=== PATIENT | female | born 1985 | race Caucasian/White ===

== ENCOUNTER → 2018-09-06 09:39 | Outpatient (CLI) | payer BC, SELFPAY ==
[2018-09-06 10:00] LABS: Absolute Lymphocyte Count 1.27 X10^3/ul (0.83-4.51); Absolute Neutrophil Count 5.7 X10^3/uL (2.0-7.7); Basophil# 0.02 X10^3/uL; Basophil% 0.3 % (0-1); Eosinophil# 0.02 X10^3/uL; Eosinophils% 0.3 % (0-5); Hematocrit 37.6 % (37-47); Hemoglobin 12.4 g/dl (12.0-15.0); Lymphocyte # 1.27 X10^3/ul (4.0); Lymphocyte % 16.8 % (19-41); Mean Corpuscular Hgb 30.2 pg (27.0-32.0); Mean Corpuscular Volume 91.7 fL (81-99); Mean Platelet Vol. 11.1 fl (6.2-12.0); Monocyte# 0.48 X10^3/uL; Monocyte% 6.4 % (0-10); Neutrophil # 5.74 X10^3/uL (2.7-7.7); Neutrophil % 75.9 % (47-70); POSITIVE COUNT NO; POSITIVE DIFFERENTIAL NO; POSITIVE MORPHOLOGY NO; Platelet Count 144 K/mm3 (150-450); RBC Distribution Width CV 12.4 % (11.6-14.6); RBC Distribution Width SD 41.7 fl (35.1-43.9); White Blood Count 7.6 K/mm3 (4.4-11.0)
[2018-09-06 11:33] LABS: HIV - WCH Non-Reactive (Nonreactive); Rubella IgG 210.8 IU/mL
[2018-09-09 11:47] LABS: HEPATITIS B SURFACE AG Negative (Negative)
[2018-09-13 02:00] LABS: Rapid Plasmin Reagin (RPR) NONREACTIVE (NONREACTIVE)
== END ==
PROVIDERS: Referring Provider Obstetrics & Gynecology; Visit Provider Obstetrics & Gynecology
DX: Z34.90 Encounter for supervision of normal pregnancy, unspecified, unspecified trimester (principal)
CPT/HCPCS: 36415; 85025; 86592; 86703; 86762; 86850; 87340

== ENCOUNTER → 2018-10-08 18:42 | Outpatient (CLI) | payer BC, SELFPAY ==
[2018-10-08 09:53] VITALS: BMI 25.0
--- OUTSIDE RECORDS SUMMARY | 2019-01-10 06:08 | XMS RPT_ITS ---
:1985 Author Organization OHIP Support Name Relationship Address Phone [facility] Unavailable [address] + [place] [address] KLINKSIEK, [place] Unavailable [id number] JOSEFA [phone] Unavailable [address] + [place] [address] KLINKSIEK, [place] Unavailable [address] JOSEFA [phone] Unavailable [address] + [place] [address] KLINKSIEK, DELMER Unavailable [id number] [phone] [place] [address] JORDAN FORD Unavailable Unavailable Unavailable [facility] Unavailable [address] + [place] [address] KLINKSIEK, [place] Unavailable [address] JOSEFA [phone] Unavailable [address] + [place] [address] KLINKSIEK, DELMER Unavailable [id number] [phone] [place], [place] [id number] [place] [address] + [place] [address] KLINKSIEK, DELMER Unavailable [address] JOSEFA [phone]available [address] + [place] [address] KLINKSIEK, DELMER Unavailable [phone] [phone] [facility] Unavailable [address] + [place] [address] KLINKSIEK, [place] Unavailable [phone] JOSEFA [address]KEON + [place] [address] [facility] Unavailable [address] + [place] [address] KLINKSIEK, [place] Unavailable [phone] JOSEFA [phone] [place] [address] Care Team Providers Name Role Phone SUSAN MONET Attending Unavailable MARCANTHONY, ISABELLE Micheal Referring Unavailable NO PRIMARY CARE, Primary Care Unavailable Pricila Melendez Attending Unavailable KEREN LO Primary Care Unavailable Al, Pricila Referring Unavailable Marcanthony, Isabelle Attending Unavailable Marcanthony, Isabelle Referring Unavailable KEREN LO Primary Care Unavailable Marcanthony, Isabelle Attending Unavailable DOCTOR, OUT OF TOWN Referring Unavailable DossiAnamaria fish D.C. Attending Unavailable DOCTOR, OUT OF TOWN Referring Unavailable DossiAnamaria fish D.C. Attending Unavailable DOCTOR, OUT OF TOWN Referring Unavailable Carlisle, Pricila Attending Unavailable DOCTOR, OUT OF TOWN Referring Unavailable Dossie, Anamaria Boyd Attending Unavailable DOCTOR, OUT OF TOWN Referring Unavailable Marcanthony, Isabelle Attending Unavailable Marcanthony, Isabelle Attending Unavailable Marcanthony, Isabelle Referring Unavailable KEREN LO Primary Care Unavailable PROBLEMS PROBLEMS DATE TYPE CONDITION / CODE ATTENDING STATUS SOURCE 10/29/2018 Unknown Z34.90 - Marcanthony, Active Mckenna [facility] normal , Repository unspecified, unspecified trimester / Z34.90(ICD-10) 10/29/2018 Unknown Z3A.21 - 21 weeks Marcanthony, Active Erik gestation of [facility] / Hospital Z3A.21(ICD-10) Repository 10/29/2018 Unknown Z98.891 - History Marcanthony, Active Erik of uterine scar [facility] from previous Hospital surgery / Repository Z98.891(ICD-10) 10/29/2018 Unknown Z34.80 - Marcanthony, Active Erik Encounter for [facility] other normal Repository , unspecified trimester / Z34.80(ICD-10) 10/30/2018 Unknown M99.03 - Dossie, Anamaria Active Mckenna Segmental and [facility] dysfunction of Repository lumbar region / M99.03(ICD-10) 10/30/2018 Unknown M99.02 - Dossie, Anamaria Active Mckenna Segmental [facility] dysfunction of Repository thoracic region / M99.02(ICD-10) 10/30/2018 Unknown M99.04 - Dossie, Anamaria Active Mckenna Segmental [facility] dysfunction of Repository sacral region / M99.04(ICD-10) 10/30/2018 Unknown M99.01 - Dossie, Anamaria Active Mckenna Segmental and [facility] dysfunction of Repository cervical region / M99.01(ICD-10) 10/09/2018 Unknown R30.0 - Dysuria / Al, Pricila Active Mckenna R30.0(ICD-10) [facility] Repository PROCEDURES PROCEDURES No Procedure Records FoundRESULTS RESULTS CT/NG WCH BY PCR Collected: 10/29/2018 Status: F Source: ERIK 2:44 PM [facility] REPOSITORY Order Comment: Comments: urine Comments: urine TYPE CODE TESTS RESULT OUT OF RANGE REFERENCE UNITS LAB L8200.2100 Negative Normal Chlam Negative Trac PCR LAB L8200.2200 Negative Normal NG by Negative PCR Performed By: #### L8200.2000 #### Laboratory [address] [facility] [place], [address] CASE COORDINATOR OFFICE VISIT Observed: 10/29/2018 Status: F Source: ERIK REPORT 10:51 AM [facility] REPOSITORY [facility] [address] [place] [address] OFFICE VISIT Date of Service: 10/29/18 MR#: [id number] Acct: [id number] Name: JORDAN FORD Rep #: [id number] : 1985 Provider: Isabelle Kumar MD Age/Sex: 33/F Location: [facility] Status: Signed Intake Vital Signs10/29/18 Body Mass Index (BMI) 25.0 10/29/18 Height 5 ft 6 in 10/29/18 Weight: 160 lb 10/29/18 Body Mass Index (BMI) 25.8 10/29/18 Blood Pressure 92/54 L Intake Visit Reasons: 21 WEEK OB Chief Complaint: est ob Gifted Teacher Required: No Is patient in pain?: No Allergies No Known Allergies Allergy (Verified 10/29/18 10:21) Medications vitamin,calcium,icpwthfg-vmnx-orhde acid tablet 1 tab PO DAILY 10/01/18 [History Confirmed 10/29/18] Last Menstral Period: 05/29/18 Zika: Zika virus screening: Negative : No PFSH PFSH Surgical History H/O section (Acute) History of appendectomy (Acute) History of bowel resection (Acute) Family History Other Arthritis CVA (cerebral vascular accident) Hormone deficiency Osteoporosis Social History Smoking Status: Never smoker alcohol intake: never substance use type: does not use caffeine: Yes what type of physical activity do you participate in: aerobics, running frequency: 3-4 times per week seatbelt use: always do you feel safe at home: Yes 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 DatName GA/WeeksOutcome Route [facility] LocaProviderFOB e ht en ia tn Unknown 2014 Bryan live birC-sectio Dr. Josh blandon - fuln a l term HPI 21 WEEK OB: Details: JORDAN FORD is a 33 year old who presents for routine OB visit. OB Visit SANTOS Calculator Estimated Delivery Date 03/05/19 Based on LMP (certain) 05/29/18 Current WG 21w 6d Number 1 Expected Delivery Route/Plan Wants TOLAC; has austin Goins 73% chance of success. uptodate education Specific Issue/Plans flu vaccine: given tdap vaccine: [] rhogam: [] LARC form signed: [] labor support person: [place] pain management: [] cut cord/dad catch: cord : yes PP control planned: [] special requests: [] Initial Weight: 148 lb Date Weight BP Urine PrFHR FuHt Pres MoCTX DilationFetal StVisit NoProviderComments E ot v te GA G Effac lucose ed Visit Notes Visit Date: 10/29/18 no vb crmaping discussed doing home bs checks. Isabelle Kumar MD on 10/29/18 Visit Date: 10/01/[address] Mosquera. No VB, LOF Pricila Melendez, LEATHER DRIER-C on 10/01/18 ACOG First Trimester First Trimester: Desire for , Alcohol, Tobacco Cessation, Illicit/Recreational Drug/Substance Use, Intimate Partner Violence, Barriers to care, Unstable Housing, Communication Barriers, Environmental/Work Hazards, Anticipated Course of Care, Toxoplasmosis Precations, Use of Any medications, Sexual activity, Exercise, Dental Care, Sauna/Hot tub use, Seat Belt use, Childbirth classes/Hospital facilities, , Travel, Indications for US and Screening for Aneuploidy Diagnostics Diagnostics Labs Antibody Screen NEGATIVE 09/06/18 Hct 37.6 % (37-47) 09/06/18 Hgb 12.4 g/dl (12.0-15.0) 09/06/18 Pap Smear Negative 10/03/16 Rubella IgG Antibody 210.8 IU/mL 09/06/18 RPR NONREACTIVE (NONREACTIVE) 09/06/18 Hep Bs Antigen Negative (Negative) 09/06/18 Details: HIV: Urine Culture: Sequential Screen: NIPT Screen: Results [id number] Office Urine Glucose Negative Last Edit by Emely Navarro on 10/29/18 10:27 Office Urine Protein Negative Last Edit by Emely Navarro on 10/29/18 10:27 Assessment AND Plan Problems 1. 21 weeks gestation of Z3A.21 NIPT low risk. Anatomy US ordered. 2. History of Z98.891 would like TOLAC Done due to distress 3. Supervision of other normal Z34.80 PRR SANTOS 03/05/19 [facility] [place]. Spouse Delmer 4. Segmental and somatic dysfunction of lumbar region M99.03 Plan ACOG trimester education reviewed and updated. see problem list details for updated plan management information and see below for orders placed at this visit. GA appropriate handout given. Orders Orders: Plan Detail Goals Decrease pain and inflammation Barriers Coding Level of Care Code OB Routine Diagnoses 21 weeks gestation of Z3A.21 Weeks of gestation: 21 weeks History of Z98.891 Supervision of other normal Z34.80 Segmental and somatic dysfunction of lumbar region M99.03 10/29/18 1051 <Electronically signed by Isabelle Kumar MD> Date Isabelle Kumar MD Cosigner Signature: Date (if applicable) CC: CHIROPRACTIC REPORT Observed: 10/29/2018 Status: F Source: WHIPPLE 10:22 AM [facility] REPOSITORY [facility] [address] [place] [address] OFFICE VISIT Date of Service: 10/29/18 MR#: [id number] Acct: [id number] Name: JORDAN FORD Rep #: [id number] : 1985 Provider: Anamaria Hidalgo D.C. Age/Sex: 33/F Location: [facility] Status: Signed Intake Vital Signs10/29/18 Height 5 ft 6 in 10/29/18 Weight: 155 lb 10/29/18 Body Mass Index (BMI) 25.0 Intake Visit Reasons: back pain Chief Complaint: neck and low back pain Is patient in pain?: Yes Allergies No Known Allergies Allergy (Verified 10/29/18 10:21) Medications vitamin,calcium,jfqvoduh-hveg-qqpwa acid tablet 1 tab PO DAILY 10/01/18 [History Confirmed 10/29/18] PFSH Surgical History H/O section (Acute) History of appendectomy (Acute) History of bowel resection (Acute) Family History Other Arthritis CVA (cerebral vascular accident) Hormone deficiency Osteoporosis Social History Smoking Status: Never smoker alcohol intake: never substance use type: does not use caffeine: Yes what type of physical activity do you participate in: aerobics, running frequency: 3-4 times per week seatbelt use: always do you feel safe at home: Yes 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 The patient states that after working she does experience a dull ache banding across the low back. At times with bending, and lifting she will experience a sharp pain in the round ligaments. Jordan also complains of neck pain, stating it is tight and stiff at times. Jordan denies any numbness, tingling, or radiculopathy. Location: neck and low back Duration: intermittent Aggravating or associated factors: , bending, and lifting Relieving factors: chiro Pain Quality: aching, dull, cramping Exam Musc General: Yes normal posture (21 weeks ), normal gait, joint tenderness (C2,C5,C6,L3,L4,L5, R SI) and decreased ROM Cervical Spine: normal cervical lordosis, cervical muscular tenderness, pain with cervical ROM, cervical spasm Thoracic/Lumbar Spine: thoracic and lumbar spine normal to inspection, straight leg raise negative bilaterally, paraspinal tenderness on the left greater than right (lower lumbar) and bilaterally in the upper thoracic and in the mid thoracic, thoraco-lumbar spasm bilaterally in the lower lumbar and in the upper thoracic Sacrum: tenderness (motion restriction R) on the right Office Procedures Chiropractic Treatments Procedures Manipulation: 3-4 regions (C2,C6,L5, R Sacrum) Assessment AND Plan 1. Segmental and somatic dysfunction of sacral region M99.04 Orders Orders: 2. Segmental and somatic dysfunction of cervical region M99.01 Orders Orders: 3. Segmental and somatic dysfunction of lumbar region M99.03 Plan Continue care. Orders Orders: Plan Detail Other Orders Orders: Goals Decrease pain and inflammation Barriers Follow Up 1 Month Coding Level of Care Code No Charge Diagnoses Segmental and somatic dysfunction of sacral region M99.04 Segmental and somatic dysfunction of cervical region M99.01 Segmental and somatic dysfunction of lumbar region M99.03 Additional Codes Procedures - Manipulation: 3-4 regions (22966) 10/29/18 1022 <Electronically signed by Anamaria Hidalgo D.C.> Date Anamaria Hidalgo D.C. Cosigner Signature: Date (if applicable) CC: CHIROPRACTIC REPORT Observed: 10/23/2018 Status: F Source: WHIPPLE 9:33 AM [facility] [address] [place] [address] OFFICE VISIT Date of Service: 10/01/18 MR#: [id number] Acct: [id number] Name: JORDAN FORD Rep #: [id number] : 1985 Provider: Anamaria Hidalgo D.C. Age/Sex: 33/F Location: [facility] Status: Signed Intake Vital Signs10/01/18 Height 5 ft 6 in 10/01/18 Weight: 150 lb 10/01/18 Body Mass Index (BMI) 24.2 Intake Visit Reasons: back pain Chief Complaint: back and neck pain Is patient in pain?: Yes Allergies No Known Allergies Allergy (Verified 10/01/18 13:38) Medications vitamin,calcium,zglzuwcc-zokd-pcuue acid tablet 1 tab PO DAILY 10/01/18 [History Confirmed 10/01/18] Patient : Yes PFSH Surgical History H/O section (Acute) History of appendectomy (Acute) History of bowel resection (Acute) Family History Other Arthritis CVA (cerebral vascular accident) Hormone deficiency Osteoporosis Social History Smoking Status: Never smoker alcohol intake: never substance use type: does not use caffeine: Yes what type of physical activity do you participate in: aerobics, running frequency: 3-4 times per week seatbelt use: always do you feel safe at home: Yes 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 She states that over the past ten weeks she has been experiencing a pinching pain banding across the low back, on the R side only when laying on her back. The pain is consistent at night, although subsides by morning. Jordan also complains of neck pain, stating the pain has been ongoing for many years. The pain is described as a tight and stiff ache that radiates up and down the neck. Rising in the morning, sleeping on a new pillow, and computer work causes increased pain. Jordan denies any numbness, tingling, headaches, or radiculopathy. Onset: 08/06/18 Location: neck and low back Duration: intermittent Aggravating or associated factors: sleeping prone, computer work, and sleeping Relieving factors: chiro Pain Quality: aching, dull, cramping Exam Musc General: Yes normal posture, normal gait and joint tenderness (C5,C6,T2,T3,T4,L3,L4,L5, R SI) Cervical Spine: normal cervical lordosis, cervical muscular tenderness bilateral lower: trapezius, pain with cervical ROM with lateral flexion to right, with lateral flexion to left and with extension, cervical spasm bilateral lower: trapezius Thoracic/Lumbar Spine: thoracic and lumbar spine normal to inspection, paraspinal tenderness on the right greater than left (upper thoracic and lower lumbar), thoraco-lumbar spasm on the right greater than left Sacrum: tenderness (motion restriction) on the right Neuro General: alert, awake, oriented x3, gait normal, normal light touch, pain and propioception, no focal motor deficits Ortho Test CERVICAL Compression pain: Negative Distraction pain: relief Zurdo's pain: Negative Valsalvas: Negative Shoulder depression pain: Right THORACIC Kemps: Negative Landry: Negative LUMBAR Kemps: Positive, Rig Valsalvas: Negative SLR: Negative Iliac Compression: Positive, Rig Office Procedures Chiropractic Treatments Procedures Manipulation: 3-4 regions (C5,T2,T4,L3,L5, R Sacrum) Assessment AND Plan Problems 1. Segmental and somatic dysfunction of lumbar region M99.03 2. Segmental and somatic dysfunction of cervical region M99.01 3. Segmental and somatic dysfunction of sacral region M99.04 4. Segmental and somatic dysfunction of thoracic region M99.02 Plan Recommend acute treatment plan. Orders Orders: Plan Detail Goals Decrease pain and inflammation Barriers Follow Up 2x/wk/2wks Coding Level of Care Code Off vis,new,level 3 Diagnoses Segmental and somatic dysfunction of lumbar region M99.03 Segmental and somatic dysfunction of cervical region M99.01 Segmental and somatic dysfunction of sacral region M99.04 Segmental and somatic dysfunction of thoracic region M99.02 Additional Codes Procedures - Manipulation: 3-4 regions (37977) 10/23/18932 <Electronically signed by Anamaria Hidalgo D.C.> Date Anamaria Hidalgo D.C. Cosigner Signature: Date (if applicable) CC: CHIROPRACTIC REPORT Observed: 10/09/2018 Status: F Source: WHIPPLE 8:04 AM [facility] REPOSITORY [facility] [address] [place] [address] OFFICE VISIT Date of Service: 10/08/18 MR#: [id number] Acct: [id number] Name: JORDAN FORD Rep #: [id number] : 1985 Provider: Anamaria Hidalgo D.C. Age/Sex: 33/F Location: [facility] Status: Signed Intake Vital Signs10/08/18 Body Mass Index (BMI) 25.0 10/08/18 Height 5 ft 6 in 10/08/18 Weight: 155 lb 10/08/18 Body Mass Index (BMI) 25.0 Intake Visit Reasons: back pain Chief Complaint: neck and low back pain Is patient in pain?: Yes Allergies No Known Allergies Allergy (Verified 10/01/18 13:38) Medications vitamin,calcium,mzqqzumv-zjkd-frmma acid tablet 1 tab PO DAILY 10/01/18 [History Confirmed 10/01/18] Patient : Yes [facility] Surgical History H/O section (Acute) History of appendectomy (Acute) History of bowel resection (Acute) Family History Other Arthritis CVA (cerebral vascular accident) Hormone deficiency Osteoporosis Social History Smoking Status: Never smoker alcohol intake: never substance use type: does not use caffeine: Yes what type of physical activity do you participate in: aerobics, running frequency: 3-4 times per week seatbelt use: always do you feel safe at home: Yes 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 Jordan states that after her last treatment, her pain greatly decreased, leaving her with no pain for roughly two days. Today Jordan rates her pain a 3/10 and describes it as a deep and sore ache that bands across the neck, rotation, lifting, and looking down causes increased pain. Jordan also complains of low back pain, described as a deep and sore ache that increases with lifting, and prolonged standing. Jordan denies any numbness, tingling, or radiculopathy. Location: neck and low back Duration: frequent Aggravating or associated factors: rotation, lifting, looking down, and prolonged standing Relieving factors: chiro Pain Quality: aching, dull, cramping Exam Musc General: Yes normal posture, normal gait, joint tenderness (C2,C5,C6,L3,L4,L5, R SI) and decreased ROM Cervical Spine: normal cervical lordosis, cervical muscular tenderness bilateral lower: trapezius and paracervical muscle, pain with cervical ROM with lateral flexion to right and with lateral flexion to left, cervical spasm bilateral lower: trapezius Thoracic/Lumbar Spine: thoracic and lumbar spine normal to inspection, straight leg raise negative bilaterally, paraspinal tenderness on the right greater than left (lumbar), thoraco-lumbar spasm bilaterally in the lower lumbar and in the mid lumbar Sacrum: tenderness (motion restriction R) on the right Office Procedures Chiropractic Treatments Procedures Manipulation: 3-4 regions (C2,C6,L4, R Sacrum) Results BMSUA Office Urine Color YELLOW Last Edit by Emely Navarro on 10/08/18 09:06 Office Urine Clarity Cloudy Last Edit by Emely Navarro on 10/08/18 09:06 Assessment AND Plan 1. Segmental and somatic dysfunction of lumbar region M99.03 Orders Orders: 2. Segmental and somatic dysfunction of cervical region M99.01 3. Segmental and somatic dysfunction of sacral region M99.04 Plan Detail Additional Comments Continue Care. Goals Decrease pain and inflammation Barriers Follow Up 1 x week Coding Level of Care Code No Charge Diagnoses Segmental and somatic dysfunction of lumbar region M99.03 Segmental and somatic dysfunction of cervical region M99.01 Segmental and somatic dysfunction of sacral region M99.04 Additional Codes Procedures - Manipulation: 3-4 regions (11810) 10/09/18 0804 <Electronically signed by Anamaria Hidalgo D.C.> Date Anamaria Hidalgo D.C. Cosigner Signature: Date (if applicable) CC: Observed: 10/08/2018 Status: F Source: ERIK CULTURE, URINE 6:43 PM [facility] REPOSITORY Urine Culture Culture exhibits no growth. Performed By: #### M100.0650 #### Laboratory [address] [place], [place], [address] CASE COORDINATOR OFFICE VISIT Observed: 10/03/2018 Status: F Source: ERIK REPORT 4:16 PM [facility] REPOSITORY [facility] [address] [place] [address] OFFICE VISIT Date of Service: 10/01/18 MR#: [id number] Acct: [id number] Name: JORDAN FORD Rep #: [id number] : 1985 Provider: Isabelle Kumar MD Age/Sex: 33/F Location: [facility] Status: Signed Intake Vital Signs10/01/18 Height 5 ft 6 in 10/01/18 Weight: 155 lb 10/01/18 Body Mass Index (BMI) 25.0 10/01/18 Blood Pressure 100/60 Intake Visit Reasons: est ob, transfer from Dr. Forrest Chief Complaint: est ob, transfer from Dr. Forrest Gifted Teacher Required: No Is patient in pain?: No Allergies No Known Allergies Allergy (Verified 10/01/18 13:38) Medications vitamin,calcium,imkofyon-jduk-xreqv acid tablet 1 tab PO DAILY 10/01/18 [History Confirmed 10/01/18] Last Menstral Period: 05/29/18 Zika: Zika virus screening: Positive ([place]) : No PFSH PFSH Surgical History H/O section (Acute) History of appendectomy (Acute) History of bowel resection (Acute) Family History Other Arthritis CVA (cerebral vascular accident) Hormone deficiency Osteoporosis Social History Smoking Status: Never smoker alcohol intake: never substance use type: does not use caffeine: Yes what type of physical activity do you participate in: aerobics, running frequency: 3-4 times per week seatbelt use: always do you feel safe at home: Yes 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 DatName GA/WeeksOutcome [facility] LocaProviderFOB e ht en ia tn Unknown 2014 Bryan live birC-sectio Dr. Josh blandon th - fuln a l term HPI est ob, transfer from Dr. Forrest: Details: JORDAN FORD is a 33 year old who presents for routine OB visit. OB Visit SANTOS Calculator Estimated Delivery Date 03/05/19 Based on LMP (certain) 05/29/18 Current WG 18w 1d Number 1 Expected Delivery Route/Plan Wants TOLAC; has austin Goins 73% chance of success. uptodate education Specific Issue/Plans flu vaccine: given tdap vaccine: [] rhogam: [] LARC form signed: [] labor support person: [place] pain management: [] cut cord/dad catch: cord : yes PP control planned: [] special requests: [] Initial Weight: Not Recorded Date Weight BP Urine PrFHR FuHt Pres MoCTX DilationFetal StVisit NoProviderComments E ot v te [place] G Effac lucose ed Visit Notes Visit Date: 10/01/[address] Mosquera. No VB, LOF Pricila Melendez, LEATHER DRIER-C on 10/01/18 ACOG First Trimester First Trimester: Alcohol, Tobacco Cessation, Illicit/Recreational Drug/Substance Use, Intimate Partner Violence, Barriers to care, Unstable Housing, Communication Barriers, Environmental/Work Hazards, Anticipated Course of Care, Nurtrition and weight gain, Toxoplasmosis Precations, Use of Any medications, Sexual activity, Exercise, Dental Care, Sauna/Hot tub use, Seat Belt use, Childbirth classes/Hospital facilities, , Travel, Indications for US, Screening for Aneuploidy and Desire for Diagnostics Diagnostics Labs Antibody Screen NEGATIVE 09/06/18 Hct 37.6 % (37-47) 09/06/18 Hgb 12.4 g/dl (12.0-15.0) 09/06/18 Rubella IgG Antibody 210.8 IU/mL 09/06/18 RPR NONREACTIVE (NONREACTIVE) 09/06/18 Hep Bs Antigen Negative (Negative) 09/06/18 Details: HIV: Urine Culture: Sequential Screen: NIPT Screen: Assessment AND Plan Problems 1. 27 weeks gestation of Z3A.27 NIPT low risk. Anatomy US ordered. 2. History of Z98.891 would like TOLAC Done due to distress 3. Supervision of other normal Z34.80 PRR(needs urine GCC and culture, records for blood type from Dr. Mosquera)Grav 2/ SANTOS 03/05/19 boy [facility] [place]. Spouse Delmer Plan - Isabelle Kumar MD movement and labor precautions reviewed. ACOG trimester education reviewed and updated. see problem list details for updated plan management information and see below for orders placed at this visit. GA appropriate handout given. Coding Level of Care Code Off vis,new,level 3 Diagnoses 27 weeks gestation of Z3A.27 Weeks of gestation: 27 weeks History of Z98.891 Supervision of other normal Z34.80 10/01/18 1458 <Electronically signed by Isabelle Kumar MD> Date Isabelle Kumar MD 10/03/18 1616<Electronically signed by Pricila Melendez LEATHER DRIER-C> Cosigner Signature: Date (if applicable) Pricila MelendezC CC: CBC W/DIFF, AUTOMATED Collected: 09/06/2018 Status: F Source: ERIK 9:43 AM [facility] REPOSITORY TYPE CODE TESTS RESULT OUT OF RANGE REFERENCE UNITS LAB L100.1000 4.4-11.0 K/mm3 Normal WBC 7.6 LAB L100.1200 4.2-5.4 M/mm3 Low RBC 4.10 LAB L100.1300 12.0-15.0 g/dl Normal HGB 12.4 LAB L100.1400 37-47 % Normal HCT 37.6 LAB L100.1500 81-99 fL Normal MCV 91.7 LAB L100.1600 27.0-32.0 pg Normal MCH 30.2 LAB L100.1700 32-36 g/gl Normal MCHC 33.0 LAB L100.1810 11.6-14.6 % Normal RDW CV 12.4 LAB L100.1820 35.1-43.9 fl Normal RDW SD 41.7 LAB L100.1900 150-450 K/mm3 Low PLT 144 LAB L100.2000 6.2-12.0 fl Normal MPV 11.1 LAB L100.2100 47-70 % High NEUT% 75.9 LAB L100.2200 19-41 % Low LY% 16.8 LAB L100.2300 0-10 % Normal MONO% 6.4 LAB L100.2400 0-5 % Normal EO% 0.3 LAB L100.2500 0-1 % Normal BASO% 0.3 LAB L100.2550 0.0-0.9 % Normal IM GRAN % 0.300 Result Comment: IG% - Immature Granulocytes (promyelocytes, myelocytes and metamyelocytes) > 1% indicates that a LEFT SHIFT is Present. LAB L100.2620 2.0-7.7 X10 3/uL Normal Absolute Neut 5.7 LAB L100.2720 0.83-4.51 X10 3/ul Normal Absolute Lymph 1.27 Performed By: #### L100.0100 #### Laboratory [address] [facility] [id number] ANTIBODY SCREEN Collected: 09/06/2018 Status: F Source: WHIPPLE 9:43 AM [facility] REPOSITORY TYPE CODE TESTS RESULT OUT OF RANGE REFERENCE UNITS LAB B100.4000 Normal Antibody NEGATIVE Screen Performed By: #### B100.4000 #### Laboratory [facility] [address] RUBELLA IGG Collected: 09/06/2018 Status: F Source: WHIPPLE 9:43 AM [facility] REPOSITORY TYPE CODE TESTS RESULT OUT OF RANGE REFERENCE UNITS LAB L509.4000 IU/mL Normal Rubella IgG 210.8 Result Comment: Antibody results Interpretation of Immune Status < 5 IU/ml Presumed Non-immune 5 - < 10 IU/ml Equivocal > or = 10 IU/ml Presumed Immune Performed By: #### L509.4000, L3890.6005 #### Laboratory [address] [place], [place], [id number] HIV - [facility] Collected: 09/06/2018 Status: F Source: WHIPPLE 9:43 AM [facility] REPOSITORY TYPE CODE TESTS RESULT OUT OF RANGE REFERENCE UNITS LAB L3890.6005 Nonreactive Normal HIV - [facility] Non-Reactive Performed By: #### L509.4000, L3890.6005 #### Laboratory [facility]. [facility] [id number] HEPATITIS B SURFACE Collected: 09/06/2018 Status: F Source: ERIK AG 9:43 AM [facility] REPOSITORY TYPE CODE TESTS RESULT OUT OF RANGE REFERENCE UNITS LAB L3100.0400 Negative Normal HB Negative SURF AG Result Comment: Performed at: [place] [id number] [employer] History Professor: Richard Teresa PhD, Phone: [phone] Performed By: #### L3100.0390 #### [facility] (refer to report for specific site) refer to report for address and phone number RAPID PLASMIN REAGIN Collected: 09/06/2018 Status: F Source: ERIK (RPR) 9:43 AM [facility] REPOSITORY TYPE CODE TESTS RESULT OUT OF REFERENCE UNITS RANGE LAB L700.5000 NONREACTIVE NONREACTIVE Normal RPR Performed By: #### L700.5000 #### Laboratory [address] [place], [address] ALLERGIES ALLERGIES DATE TYPE / CODE NAME / CODE REACTION SEVERITY SOURCE 10/29/2018 Drug No Known Unknown [facility] Allergy/4160 Allergies/F00 Hospital 13243(SNOMED [id number](RXNOR Repository CT) M) ENCOUNTERS ENCOUNTERS ADMIT/DISCHARGE ACCOUNT ADMITTING ENCOUNTER LOCATION SOURCE NUMBER CLASS 10/29/2018 [id number] Ambulatory [facility] ing:LABSPEC Repository 10/29/2018/10/29/19 [id number] Ambulatory BMSBuilding:B Erik 19 MS.[facility] Repository 10/29/2018/10/29/19 [id number] Ambulatory BMSBuilding:B Mckenna [address] MS.[facility] Repository 10/24/2018 [id number] Ambulatory Building:[facility] Repository 10/08/2018 [id number] Ambulatory [facility] ing:LABSPEC Repository 10/08/2018/10/08/20 [id number] Ambulatory BMSBuilding:B Mckenna [address] MS.[facility] Repository 10/08/2018/10/08/20 [id number] Ambulatory BMSBuilding:B Mckenna 18 MS.[facility] Repository 10/01/2018/10/01/20 [id number] Ambulatory BMSBuilding:B Mckenna 18 MS.[facility] Repository 10/01/2018/10/01/20 [id number] Ambulatory BMSBuilding:B Mckenna 18 MS.[facility] Repository 09/06/2018 [id number] [facility]PA[facility]AB Rep[facility] PAYERS PAYERS ENCOUNTER GUARANTOR PAYER SUBSCRIBER SOURCE 10/29/2018 JORDAN [id number] Insurance:ANTHEMPolic KLINKSIEKDOB: Community [place] y Number: [id number] [id number] [place]ository [place] [address]Lxt: Date:8659-09-01AE [address]YIZNGCF, [place] () [address]QO: 10/29/2018 Secondary NOT GIVENUNK Erik Insurance:SELF PAY [facility] Number: Effective Repository Date:2018-10-29 10/29/2018 JORDAN [id number] Insurance:ANTHEMPolic KLINKSIEKDOB: Community [place] y Number: [id number], [id number] [place]ository [place] [address]Idz: Date:3481-51-20GP [address]KSADNGX, [place] () [address]J: 10/29/2018 Secondary NOT GIVENUNK Erik Insurance:SELF PAY [facility] Number: Effective Repository Date:2018-10-29 10/29/2018 JORDAN [id number] Insurance:ANTHEMPolic KLINKSIEKDOB: Community [place] y Number: [id number], [id number] [place]ository [place] [address]Qey: Date:7116-85-57IW [address] () [address]HP: 10/29/2018 Secondary NOT GIVENUNK Erik Insurance:SELF PAY [facility] Number: Effective Repository Date:2018-10-28 10/24/2018 JORDAN [facility] KLINKSIEKDOB: Insurance:ANTHEMPolic KLINKSIEKDOB: Hospital [id number] y Number: [id number] Repository [place] [id number] [address] [facility], Date: [place], [place] [address]Ylx: [place] [address] () 10/08/2018 JORDAN Meredith Primary DELMER [id number] Insurance:ANTHEMPolic KLINKSIEKDOB: Community [place] y Number: [id number], [id number] [place]ository [place] [address]Iii: Date:2340-91-83DU [address]IDBTKPNMAYURI LUNA () [address]TP: 10/08/2018 Secondary NOT GIVENUNK Mckenna Insurance:SELF PAY [facility] Number: Effective Repository Date:2018-10-08 10/08/2018 JORDAN Meredith Primary [place] [id number] Insurance:ANTHEMPolic KLINKSIEKDOB: Community [place] y Number: [id number], [id number] Repository [place] [address]Xri: Date:0703-36-87JL [address]ASEOPRTMAYURI LUNA () [address]VZ: 10/08/2018 Secondary NOT GIVENUNK Mckenna Insurance:SELF PAY [facility] Number: Effective Repository Date:2018-10-07 10/08/2018 JORDAN Meredith Primary [place] [id number] Insurance:ANTHEMPolic KLINKSIEKDOB: Community [place] y Number: [id number], [id number] Repository [place] [address]Dhj: Date:1918-57-49ML [address]WKENDZC, [place] () [address]WA: 10/08/2018 Secondary NOT GIVENUNK Mckenna Insurance:SELF PAY [facility] Number: Effective Repository Date:2018-10-08 10/01/2018 JORDAN Meredith Primary [place] [id number] Insurance:ANTHEMPolic KLINKSIEKDOB: Community [place] y Number: [id number], [id number] [place]ository [place] [address]Bjm: Date:9362-24-69NX [address] [place] () [address]VF: 10/01/2018 Secondary NOT GIVENUNK Mckenna Insurance:SELF PAY [facility] Number: Effective Repository Date:2018-09-27 10/01/2018 JORDAN Meredith Primary [place] Viri Erik [id number] Insurance:ANTHEMPolic KLINKSIEKDOB: Community [place] y Number: [id number], [id number] [place]ository [place] [address]Ved: Date:6388-60-87KN [address] () [address]IL: 10/01/2018 Secondary NOT GIVENUNK Mckenna Insurance:SELF PAY [facility] Number: Effective Repository Date:2018-10-01 09/06/2018 JORDAN Meredith Primary [place] Viri Erik [id number] Insurance:ANTHEMPolic KLINKSIEKDOB: Community [place] y Number: [id number], [id number] Repository [place] [address]Aqx: Date:3131-68-34AV [address]LIQGNXWMAYURI LUNA () [address]GT: 09/06/2018 Secondary NOT GIVENUNK Mckenna Insurance:SELF PAY [facility] Number: Effective Repository Date:2018-09-03
== END ==
PROVIDERS: Referring Provider Nurse Practitioner Women's Health; Visit Provider Nurse Practitioner Women's Health
DX: R30.0 Dysuria (principal)
CPT/HCPCS: 87086

== ENCOUNTER → 2018-10-29 13:41 | Outpatient (CLI) | payer BC, SELFPAY ==
[2018-10-29 10:22] VITALS: BMI 25.0
[2018-10-29 17:51] LABS: Chlamydia Trachomatis by PCR Negative (Negative); Neisserai gonorrhoeae by PCR Negative (Negative); Probe Check PASS; Sample Adequacy Control PASS; Specimen Processing Control PASS
== END ==
PROVIDERS: Referring Provider Obstetrics & Gynecology; Visit Provider Obstetrics & Gynecology
DX: Z34.90 Encounter for supervision of normal pregnancy, unspecified, unspecified trimester (principal)
CPT/HCPCS: 87491; 87591

== ENCOUNTER → 2018-12-13 10:01 | Outpatient (CLI) | payer BC, SELFPAY ==
[2018-12-13 09:46] VITALS: BMI 25.8
[2018-12-13 10:23] LABS: Absolute Lymphocyte Count 1.18 X10^3/ul (0.83-4.51); Absolute Neutrophil Count 8.4 X10^3/uL (2.0-7.7); Basophil# 0.01 X10^3/uL; Basophil% 0.1 % (0-1); Eosinophil# 0.03 X10^3/uL; Eosinophils% 0.3 % (0-5); Hematocrit 38.4 % (37-47); Hemoglobin 12.5 g/dl (12.0-15.0); Lymphocyte # 1.18 X10^3/ul (4.0); Lymphocyte % 11.6 % (19-41); Mean Corp Hgb Conc 32.6 g/gl (32-36); Mean Corpuscular Hgb 30.5 pg (27.0-32.0); Mean Corpuscular Volume 93.7 fL (81-99); Mean Platelet Vol. 11.4 fl (6.2-12.0); Monocyte# 0.54 X10^3/uL; Monocyte% 5.3 % (0-10); Neutrophil % 82.4 % (47-70); POSITIVE COUNT NO; POSITIVE DIFFERENTIAL NO; POSITIVE MORPHOLOGY NO; Platelet Count 150 K/mm3 (150-450); RBC Distribution Width CV 12.9 % (11.6-14.6); RBC Distribution Width SD 44.1 fl (35.1-43.9); White Blood Count 10.2 K/mm3 (4.4-11.0)
== END ==
PROVIDERS: Nurse Practitioner Women's Health; Referring Provider Obstetrics & Gynecology; Visit Provider Obstetrics & Gynecology
DX: Z34.80 Encounter for supervision of other normal pregnancy, unspecified trimester (principal)
CPT/HCPCS: 36415; 85025; 86850; 86900

== ENCOUNTER → 2019-02-11 15:24 | Outpatient (CLI) | payer BC, SELFPAY ==
[2019-02-11 10:20] VITALS: BMI 25.8
== END ==
PROVIDERS: Referring Provider Obstetrics & Gynecology; Visit Provider Obstetrics & Gynecology
DX: Z34.80 Encounter for supervision of other normal pregnancy, unspecified trimester (principal)
CPT/HCPCS: 87077; 87081; 87186

== ENCOUNTER → 2019-02-28 16:42 | Outpatient (CLI) | payer BC, SELFPAY ==
[2019-02-28 08:53] VITALS: BMI 28.5
== END ==
PROVIDERS: Referring Provider Obstetrics & Gynecology; Visit Provider Obstetrics & Gynecology
DX: N39.0 Urinary tract infection, site not specified (principal)
CPT/HCPCS: 87086; 87088

== ENCOUNTER 2019-03-02 18:20 | Inpatient (IN) | payer BC, SELFPAY ==
[2018-11-19 13:36] VITALS: BMI 25.8
[2019-03-02 17:09] VITALS: BMI 25.8
[2019-03-02] MEDS: Lactated Ringers 1,000 ML 50 ML IV ×2 (18:25→22:00)
[2019-03-02 18:59] VITALS: BMI 28.7
[2019-03-02 19:24] LABS: Absolute Lymphocyte Count 0.83 X10^3/ul (0.83-4.51); Absolute Neutrophil Count 8.8 X10^3/uL (2.0-7.7); Basophil# 0.01 X10^3/uL; Basophil% 0.1 % (0-1); Eosinophil# 0.07 X10^3/uL; Eosinophils% 0.7 % (0-5); Hematocrit 35.5 % (37-47); Hemoglobin 11.8 g/dl (12.0-15.0); Lymphocyte # 0.83 X10^3/ul (4.0); Lymphocyte % 7.9 % (19-41); Mean Corp Hgb Conc 33.2 g/gl (32-36); Mean Corpuscular Hgb 29.7 pg (27.0-32.0); Mean Corpuscular Volume 89.4 fL (81-99); Mean Platelet Vol. 11.4 fl (6.2-12.0); Monocyte# 0.76 X10^3/uL; Monocyte% 7.2 % (0-10); Neutrophil # 8.82 X10^3/uL (2.7-7.7); Neutrophil % 83.9 % (47-70); POSITIVE COUNT NO; POSITIVE DIFFERENTIAL NO; POSITIVE MORPHOLOGY NO; Platelet Count 157 K/mm3 (150-450); RBC Distribution Width CV 13.5 % (11.6-14.6); Red Blood Count 3.97 M/mm3 (4.2-5.4); White Blood Count 10.5 K/mm3 (4.4-11.0)
--- NOTE | 2019-03-02 20:17 | PCM.HP.OB ---
- Problem List (1) Active labor at term Status: Acute (2) Positive GBS test Status: Acute (3) Status: Acute Qualifiers: Comment: NIPT low risk. Anatomy US ordered. (4) History of Status: Acute Comment: would like TOLAC Done due to distress (5) Supervision of other normal Status: Acute Comment: PRR SANTOS 03/05/19 boy Alan Jasso. Spouse Delmer (6) Segmental and somatic dysfunction of lumbar region Status: Acute History Date of Admission: 03/02/19 Final SANTOS: 03/05/19 Gestational age: 39 Weeks and 4 Days History of this : This is a 33 year-old, , at 39 weeks gestational age presents IAL. she has had an uncomplicated denies any lof admits good fm, having bladder spasms and being treated for a UTI. Surgical History: Surgical History (Last Reviewed 02/25/19 @ 10:10 by Emely Navarro) H/O section Z98.891 History of appendectomy Z90.49 History of bowel resection Z98.890, Z90.49 Allergies No Known Allergies Allergy (Verified 03/02/19 19:28) Home Medications: Home Medications vitamin,calcium,iblgzfmo-kcla-hwaaa acid tablet 1 tab PO DAILY 10/01/18 Nitrofurantoin Monohyd/M-Cryst [Nitrofurantoin [place]-Mcr 100 mg] 100 mg PO BID 03/02/19 cephalexin 500 mg capsule 500 mg PO TID 7 Days #21 cap 03/02/19 phenazopyridine 100 mg tablet 100 mg PO TID PRN 0 Days #10 tab 03/02/19 Smoking Status: Never smoker Alcohol: None Number of Fetus(es): 1 Heart Tracin moderate variability reactive no decelerations category I tracing Lueders: regular History Past Pregnancies: Past Pregnancies Pregancy History 2 Elective abortions Hx Para 1 Spontaneous abortions Hx # Term Pregnancies Ectopic pregnancies Hx # Pregnancies Multiple births # of living children Past Pregnancies Del. Date Name GA/Weeks Outcome Route Bth Weight Infant Gen Labor Lgth Anesthesia Del Locatn Provider FOB Unknown 2014 live - full term Dr. Ricardo Labs: Mom's Problem List Problem Status Onset Code Active labor at term Acute Mom's Labs & Results 03/02/19 03/02/19 18:25 18:25 WBC 10.5 RBC 3.97 L Hgb 11.8 L Hct 35.5 L MCV 89.4 MCH 29.7 MCHC 33.2 RDW 13.5 RDW Differential 44.0 H Plt Count 157 MPV 11.4 Immature Gran % (Auto) 0.200 Neut % (Auto) 83.9 H Lymph % (Auto) 7.9 L [place] % (Auto) 7.2 Eos % (Auto) 0.7 Baso % (Auto) 0.1 Absolute Neuts (auto) 8.8 H Absolute Lymphs (auto) 0.83 Total Counted Not Reportable Blood Type O POSITIVE Antibody Screen NEGATIVE Course Did the patient receive Yes care? Labs Blood Type: O RH: POSITIVE RPR/VDRL/Syphilis Nonreactive Rubella status Immune HbSAg Negative Date Done: 09/06/18 Chlamydia Negative Gonorrhea Negative HIV/AIDS Non-Reactive Group B Strep: Positive Medications Taken During Dose/Freq.: [Macrobid] 100 mg BID Last Date/Time of Medication 02/28/19 Taken: [Macrobid] Reason for taking medication [ -bladder infection Macrobid] Social History Hx Smoking No Smoking Status Never smoker Expected Delivery Method: Describe any other labor & delivery plans:: OB Visit. SANTOS Calculator. Estimated Delivery Date 03/05/19. Based on LMP (certain) 05/29/18. Current WG 38w 6d. Number 1. Expected Delivery Route/Plan. Wants TOLAC; has austin Goins 73% chance of success. uptodate education. Specific Issue/Plans. flu vaccine: given. tdap vaccine: declines. rhogam: na. LARC form signed: declines. labor support person: Anamaria Dowell. pain management: minimal intervention, hydrotherapy,. cut cord/dad catch: cord. : yes. PP control planned: vasectomy. special requests: no pitocin after delivery, discuss all interventions Review of Systems Constitutional: Denies: Fever, Malaise Eyes: Denies: Blurred vision, Vision Change HEENT: Denies: Head Aches, Visual Changes Cardiovascular: Denies: Chest Pain, Palpitations Respiratory: Denies: Cough, Shortness of Breath, Wheezing Gastrointestinal: Denies: Abdominal Pain, Diarrhea, Nausea, Vomiting Genitourinary: Denies: Dysuria, Hematuria Musculoskeletal: Denies: Joint Pain, Muscle pain Skin: Denies: Lesions, Rash Neurological: Denies: Blurred vision, Focal weakness, Headaches Psychiatric: Denies: Anxiety, Depression Endocrine: Denies: Heat/ Cold Intolerance Hematologic/ Lymphatic: Denies: Easy Bruising, Easy Bleeding Physical Exam General: Alert, Cooperative, No apparent distress HEENT: Atraumatic, Normocephalic. Negative for: Thyromegaly, Lymphadenopathy Cardiovascular: Regular rate Lungs: Normal air movement Abdomen: Soft, Non Tender, Gravid Neurological: Deep Tendon Reflexes 2+/4 and Symmetrical, Neuro grossly intact. Negative for: Clonus PROFESSOR OF RELIGION: Normal external genitalia. Negative for: Vulvar lesions Estimated gestational size: Appropriate for gestational size Presentation: Cephalic Assessment/Plan All Active Problems (Last Reviewed 02/25/19 @ 10:10 by Emely Navarro) Active labor at term (Acute) Positive GBS test (Acute) Segmental and somatic dysfunction of pelvic region (Acute) Segmental and somatic dysfunction of thoracic region (Acute) Segmental and somatic dysfunction of sacral region (Acute) Segmental and somatic dysfunction of cervical region (Acute) (Acute) History of (Acute) Supervision of other normal (Acute) Segmental and somatic dysfunction of lumbar region (Acute) This is a 33 year-old, , at 39 weeks gestational age presents IAL Patient presents IAL, plan expectant management for , pitocin/AROM PRN if needed. Pain management: Prefers minimal intervention, hydrotherapy. GBS positive plan IV PCN. Management of any complications: None I have reviewed the [facility] and made any clinically relevant updates.
[2019-03-02] MEDS: Phenazopyridine 95 MG Tablet PO (20:21)
[2019-03-02] MEDS: 0.9% Saline Lock 10 ML Syringe IV (20:38)
[2019-03-02] MEDS: Cephalexin 500 MG Capsule PO (21:03)
[2019-03-03] MEDS: fentaNYL-bupivacaine (epidural) 100 ML BAG EPIDURAL (02:11)
[2019-03-03] MEDS: 0.9% Saline Lock 10 ML Syringe IV (03:02)
--- NOTE | 2019-03-03 03:46 | PCM.OPRPT ---
Problem List (1) Active labor at term Status: Acute (2) Positive GBS test Status: Acute (3) Status: Acute Qualifiers: Comment: NIPT low risk. Anatomy US ordered. (4) History of Status: Acute Comment: would like TOLAC Done due to distress (5) Supervision of other normal Status: Acute Comment: PRR SANTOS 03/05/19 jeane Jasso. Spouse Delmer (6) Segmental and somatic dysfunction of lumbar region Status: Acute Vaginal Delivery Maternal Presentation: Active Labor 33-year-old G2, P1 at 39 weeks 4 days presents in active labor Amniotic Membrane Rupture Type: Spontaneous Amniotic Fluid Description: Clear Final SANTOS: 03/05/19 Gestational age: 39 Weeks and 5 Days Date of Procedure: 03/03/19 Pre-Operative Diagnosis: ial Post-Operative Diagnosis: same Surgery/ Procedure Performed: Spontaneous Vaginal Delivery, - - Type of Anesthesia: Epidural, Local with 1% lidocaine Description of Procedure: Patient began pushing and delivered the head in the TIARRA presentation. The head was delivered atraumatically . The anterior and posterior shoulders delivered without complication followed by the rest of the infant and the was placed on the maternal abdomen. Delayed cord clamping was employed for approximately 120 seconds. Cord was clamped and cut and gentle traction was applied to the cord and the placenta delivered spontaneously immediately following it was noted to be intact with three-vessel cord. The perineum and vagina were inspected and noted to have a second-degree perineal laceration that was injected with 1% lidocaine and repaired in the usual fashion with 3-0 Vicryl Rapide. EBL was 300 cc, Pitocin was not given post per patient's request. Patient and infant tolerated delivery well. Presentation: TIARRA Placental Delivery Description: Spontaneous Placenta Disposition: [facility] Cord Vessel Description: 3 Vessels Cord Entanglement: None Estimated Blood Loss: 300 A gender: Male Episiotomy Description: None Laceration: Perineal Extension/lac, 2nd degree Complications: None
[2019-03-03] MEDS: Naproxen 250 MG Tablet 500 MG PO ×3 (05:22→23:24)
[2019-03-03] MEDS: Senna/Docusate Sodium 1 Tablet PO (07:54)
[2019-03-03] MEDS: Acetaminophen 500 MG Tablet 1000 MG PO ×2 (07:59→19:42)
[2019-03-03 08:15] VITALS: BP 107/55; PULSE 76; RESP 16; TEMP 36.4
[2019-03-03] MEDS: Cephalexin 500 MG Capsule PO ×2 (13:34→21:11)
[2019-03-03 15:48] VITALS: BP 112/54; PULSE 87; RESP 16; TEMP 36.7
[2019-03-03 19:46] VITALS: BP 127/70; PULSE 102; RESP 16; TEMP 36.7; O2SAT 98
[2019-03-03 23:26] VITALS: BP 104/58; PULSE 77; RESP 17; TEMP 36.7; O2SAT 96
[2019-03-04] MEDS: Acetaminophen 500 MG Tablet 1000 MG PO ×2 (04:04→12:52)
[2019-03-04 05:02] VITALS: BP 106/62; PULSE 77; RESP 18; TEMP 36.6
[2019-03-04] MEDS: Cephalexin 500 MG Capsule PO ×2 (06:33→12:52)
--- NOTE | 2019-03-04 07:37 | PCM.PN.OB ---
Patient Problems: Active and Suspected Problems (Last Reviewed 02/25/19 @ 10:10 by Emely Navarro) Active labor at term (Acute) Subjective: doing well no complaints pain controlled no CP SOB N V ambulating well tolerating po lochia moderate, going well - Physical Exam General: Alert, Oriented x3 Abdomen: Soft, Non Tender, - - FF below U Vital Signs Temp Pulse Resp BP Pulse Ox 97.8 F 77 18 106/62 96 03/04/19 05:02 03/04/19 05:02 03/04/19 05:02 03/04/19 05:02 03/03/19 23:26 Oxygen Delivery Method Room Air Weight: 178 lb Body Mass Index (BMI) 28.7 Intake and Output for Last 24 Hours 03/02/19 03/03/19 03/04/19 23:59 23:59 23:59 Intake Total 856 / 856 Output Total 1300 / 1300 Balance 856 / 856 -1300 / -1300 Medical Necessity - Tobacco Use Smoking Status: Never smoker Assessment/Plan All Active Problems (Last Reviewed 02/25/19 @ 10:10 by Emely Navarro) Active labor at term (Acute) Positive GBS test (Acute) Segmental and somatic dysfunction of pelvic region (Acute) Segmental and somatic dysfunction of thoracic region (Acute) Segmental and somatic dysfunction of sacral region (Acute) Segmental and somatic dysfunction of cervical region (Acute) (Acute) History of (Acute) Supervision of other normal (Acute) Segmental and somatic dysfunction of lumbar region (Acute) s/p PPD # 1 1. routine post delivery care 2. breast feeding- support given 3. rh positive 4. rubella immune 5. continue keflex for UTI 6. encouraged stool softener at home 7. plans home today
--- NOTE | 2019-03-04 07:42 | DCINST_ITS ---
Additional Instructions: If you experience any of the following, contact your healthcare provider. * Bleeding that soaks a pad every hour for 2 hours * Fever 100.4 or higher * Unrelieved incision or abdominal pain * Swelling, redness, discharge or bleeding from your incision or episiotomy site * Your incision begins to separate * Problems urinating (including inability to urinate or burning while urinating). * Visual changes * Severe headache * Flu-like symptoms * Pain or redness in one of both of your breasts * Pain, warmth, tenderness or swelling in your legs, especially the calf area * Frequent nausea and vomiting * Symptoms of depression or anxiety If you experience any of the following, call 911 or go to the nearest Emergency Room. * Chest pain * Problems breathing * Seizure activity * Partial or complete paralysis of a body part, slurred speech, weakness or drooping of the face, or a sudden inability to walk or hold your balance Allergies/Adverse Reactions: Allergies No Known Allergies Allergy (Verified 03/02/19 19:28) Medications to take at Discharge vitamin,calcium,wtyrtytw-rfwa-nmluf acid tablet 1 tab PO DAILY 10/01/18 Nitrofurantoin Monohyd/M-Cryst [Nitrofurantoin [place]-Mcr 100 mg] 100 mg PO BID 03/02/19 cephalexin 500 mg capsule 500 mg PO TID 7 Days #21 cap 03/02/19 Cephalexin [Keflex] 500 mg PO Q8 5 Days #15 capsule 03/04/19 The following prescriptions were given: Cephalexin [Keflex] 500 mg PO Q8 5 Days #15 capsule Test Results: Test results from this visit will be discussed in further detail at your follow- up appointment, if applicable.
--- NOTE | 2019-03-04 07:42 | PCM.DCVAG ---
Additional Instructions: If you experience any of the following, contact your healthcare provider. Bleeding that soaks a pad every hour for 2 hours Fever 100.4 or higher Unrelieved incision or abdominal pain Swelling, redness, discharge or bleeding from your incision or episiotomy site Your incision begins to separate Problems urinating (including inability to urinate or burning while urinating). Visual changes Severe headache Flu-like symptoms Pain or redness in one of both of your breasts Pain, warmth, tenderness or swelling in your legs, especially the calf area Frequent nausea and vomiting Symptoms of depression or anxiety If you experience any of the following, call 911 or go to the nearest Emergency Room. Chest pain Problems breathing Seizure activity Partial or complete paralysis of a body part, slurred speech, weakness or drooping of the face, or a sudden inability to walk or hold your balance Allergies/Adverse Reactions: Allergies No Known Allergies Allergy (Verified 03/02/19 19:28) Medications to take at Discharge vitamin,calcium,zputkfyk-kudx-xqdue acid tablet 1 tab PO DAILY 10/01/18 Nitrofurantoin Monohyd/M-Cryst [Nitrofurantoin [place]-Mcr 100 mg] 100 mg PO BID 03/02/19 cephalexin 500 mg capsule 500 mg PO TID 7 Days #21 cap 03/02/19 Cephalexin [Keflex] 500 mg PO Q8 5 Days #15 capsule 03/04/19 The following prescriptions were given: Cephalexin [Keflex] 500 mg PO Q8 5 Days #15 capsule Test Results: Test results from this visit will be discussed in further detail at your follow-up appointment, if applicable.
[2019-03-04] MEDS: Naproxen 250 MG Tablet 500 MG PO (08:46)
[2019-03-04 09:00] VITALS: BP 138/82; PULSE 100; RESP 16; TEMP 36.2
[2019-03-04] MEDS: Senna/Docusate Sodium 1 Tablet PO (12:51)
[2019-03-04 14:20] VITALS: BP 127/66; PULSE 98; RESP 16; TEMP 36.6
== END 2019-03-04 14:20 | disposition home or self-care (01) | DRG 806 ==
PROVIDERS: Admitting Provider Obstetrics & Gynecology; Referring Provider Obstetrics & Gynecology; Visit Provider Obstetrics & Gynecology
DX: O34.219 Maternal care for unspecified type scar from previous cesarean delivery (principal); O23.13 Infections of bladder in pregnancy, third trimester; Z37.0 Single live birth; O70.1 Second degree perineal laceration during delivery; O99.820 Streptococcus B carrier state complicating pregnancy; O99.89 Other specified diseases and conditions complicating pregnancy, childbirth and the puerperium; M99.03 Segmental and somatic dysfunction of lumbar region; Z3A.39 39 weeks gestation of pregnancy
CPT/HCPCS: 59025; 59050; 85025; 86850; 86900; 99218; J7120; A4216; G0378; J3490

== ENCOUNTER → 2020-03-16 09:54 | Outpatient (CLI) | payer BC, SELFPAY ==
[2020-03-10 09:02] VITALS: BMI 28.7
--- NOTE | 2020-03-16 09:56 | US_ITS ---
STUDY: ULTRASOUND BREAST - RIGHT REASON FOR EXAM: Female, 34 years old. Palpable lump in the right breast. The patient is presently nursing. TECHNIQUE: Axial and longitudinal images of the RIGHT breast were performed with a high resolution ultrasound transducer. # OF IMAGES: 55 COMPARISON: None. FINDINGS: RIGHT Breast: The upper outer quadrant of the right breast was examined. 2 benign-appearing lymph nodes are seen in the axillary region. The larger lymph node measures 1.7 cm x 2.3 cm x 0.7 cm. IMPRESSION: 2 benign-appearing right axillary lymph nodes. ASSESSMENT CATEGORY: BIRADS Category 2: Benign. A letter regarding these results will be sent to the patient by the facility within 30 days. Electronically Signed: Ranulfo Rdz, at 9:16 EDT , Service support , STUDY: ULTRASOUND BREAST - LEFT REASON FOR EXAM: Female, 34 years old. Palpable axillary lump left breast. TECHNIQUE: Axial and longitudinal images of the LEFT breast were performed with a high resolution ultrasound transducer. # OF IMAGES: 55 COMPARISON: None. FINDINGS: LEFT Breast: The axillary region of the left breast was examined. 2 benign appearing lymph nodes are seen. The larger measures 1.2 cm x 1.1 cm x 0.6 cm. US/Breast Limited Unilateral IMPRESSION: 2 benign-appearing lymph nodes are seen in the left axillary region. ASSESSMENT CATEGORY: BIRADS Category 2: Benign. A letter regarding these results will be sent to the patient by the facility within 30 days. Electronically Signed: Ranulfo Rdz, at 9:18 EDT , Service support ,
== END ==
PROVIDERS: Referring Provider Obstetrics & Gynecology; Visit Provider Obstetrics & Gynecology
DX: N63.10 Unspecified lump in the right breast, unspecified quadrant (principal); N63.20 Unspecified lump in the left breast, unspecified quadrant
CPT/HCPCS: 76642